=== PATIENT | male | born 1950 | race Caucasian/White ===

== ENCOUNTER → 2016-07-23 | Day surgery (SDC) | payer OTHER ==
[~2016-07-23] MED LIST: ANAPROX DS550 M1 PO; ASPIRIN81 M2 PO; GABAPENTIN300 MG PO
--- NOTE | ~2016-07-23 | OR ---
Unit #: [id number] #: [id number] Patient: ALAN VILLALBA [id number] [address] [address] [id number] MR#: [id number] NAME: ALAN VILLALBA. ROOM: Date of Procedure: 07/23/2016 Admission Date: 07/23/2016 Surgeon: Garry Chaidez M.D. : 1950 Attending Physician: Garry Chaidez M.D. Primary Care Physician: Elton Kraft M.D. OPERATIVE REPORT PREOPERATIVE DIAGNOSES The patient has come for colorectal cancer surveillance. He has personal history of colon polyps removed in the past. PROCEDURES PERFORMED Colonoscopy and polypectomy. POSTOPERATIVE DIAGNOSES 1. Single sessile polyp in the cecum. This was about 1.6 cm in size. The polyp was removed after submucosal injection of methylcellulose followed by snare polypectomy. 2. The patient had mild sigmoid and descending colon diverticulosis. 3. Rest of the examination up to cecum and terminal ileum was normal. The quality of the prep was excellent. RECOMMENDATIONS 1. Follow up results of polyp histology. 2. Consider repeat colonoscopy in 5 years. SEDATION USED MAC. DESCRIPTION OF PROCEDURE Following detailed explanation of the potential risks and complications of a colonoscopy, namely perforation, bleeding, and complications related to sedation, the patient was brought to GI lab and laid in the left lateral decubitus position. A digital rectal examination was performed, which was normal. Lubricated tip of the Olympus video colonoscope was inserted through the anus and advanced under direct vision. The scope was advanced and passed up to sigmoid into descending colon. Scant small diverticula were noticed in this area. The scope tip was then navigated all the way up to cecum with visualization of the ileocecal valve and the appendiceal orifice. Preparation was excellent with good visualization and photodocumentations obtained. Last several inches of the terminal ileum also visualized after reaching the ileocecal valve and appeared normal. Successive segments of the colonic mucosa were examined upon withdrawal. The patient was noted to have a single sessile polyp in the cecum adjacent to appendiceal orifice. This was about 1.6 cm in size. The polyp was a true flat sessile adenoma. The polyp was removed using snare cautery polypectomy after submucosal injection with methylcellulose. The polyp was retrieved and sent for histology. Excellent hemostasis was achieved. Photodocumentation was obtained. No additional polyps noted. Other than Unit #: [id number] #: [id number] Patient: ALAN VILLALBA the scant diverticula seen in the sigmoid and descending colon, no other abnormalities were found. The patient did not have any hemorrhoids at anal verge. The scope was then withdrawn. The patient was returned to the recovery area. He tolerated the procedure without any postprocedure complications. Dictated by... Miguel A Bahena/jj TD: 07/24/2016 03:22 JOB #: [id number] OPERATIVE REPORT X Garry Chaidez MD X PROCEDURE OPERATIVE NOTE
== END | disposition home or self-care (01) ==
LOC: COPS 09:36
DX: Z12.11 Encounter for screening for malignant neoplasm of colon (principal); D12.0 Benign neoplasm of cecum; K57.30 Diverticulosis of large intestine without perforation or abscess without bleeding; K21.9 Gastro-esophageal reflux disease without esophagitis; Z86.010 Personal history of colon polyps; Z98.52 Vasectomy status; Z87.442 Personal history of urinary calculi; Z85.828 Personal history of other malignant neoplasm of skin
CPT/HCPCS: 88305; J2250